=== PATIENT | male | born 1950 | race Caucasian/White ===

== ENCOUNTER 2016-11-03 15:56 | Emergency (ER) | payer MEDICAID ==
[2016-11-03 16:10] VITALS: TEMP 98.1
--- NOTE | 2016-11-03 16:17 | CPEKG ---
Heart Rate: 98 RR Interval: 612 P-R Interval: 152 QRSD Interval: 84 QT Interval: 352 QTC Interval: 450 P [place]: 31 QRS [place]: -39 T Wave [place]: 9 EKG Severity - OTHERWISE NORMAL ECG - EKG Impression: SINUS RHYTHM EKG Impression: LEFT AXIS DEVIATION Electronically Signed By: Rose Bueno 03-Nov-2016 22:03:19
[2016-11-03 16:30] LABS: % IMMATURE GRANULYOCYTES 0.5 % (0.0-1.1); ABSOLUTE IMMATURE GRANULOCYTES 0.04 10^3/uL (0.00-0.10); ADD DIFF? NO; ADD MORPH? NO; ADD SCAN? NO; ATYPICAL LYMPHOCYTE FLAG 0 (0-99); FRAGMENT RBC FLAG 10 (0-99); HEMATOCRIT 41.9 % (40.0-51.0); LEFT SHIFT FLG 0 (0-99); LIPEMIA HEMOLYSIS FLAG 80 (0-99); MEAN CELL HEMOGLOBIN 30.4 pg (27.9-34.1); MEAN CELL HEMOGLOBIN CONCENTR. 33.4 g/dL (32.4-36.7); MEAN CELL VOLUME 90.9 fL (81.5-99.8); MEAN PLATELET VOLUME 8.7 fL (8.7-11.7); PLATELET CLUMPS FLAG 0 (0-99); PLATELET COUNT 347 10^3/uL (150-400); RED BLOOD CELL COUNT 4.61 10^6/uL (4.40-6.38); RED CELL DISTRIBUTION WIDTH 14.5 % (11.5-15.2)
--- NOTE | 2016-11-03 16:54 | EDPHY ---
H & P Time Seen by Provider: 11/03/16 16:47 HPI/ROS: CHIEF COMPLAINT: Lightheadedness, shortness of breath. HISTORY OF PRESENT ILLNESS: The patient is a 65-year-old male with a history of hypertension and dementia presenting from [facility] via EMS. He does not know why he is here. All he remembers is being helped by staff after a possible fall. He says he feels "woozy". He denies cough, chest pain, or other complaints. He denies head injury. He reports that his blood pressure has been "out of whack" lately. Patient is an extremely poor historian due to encephalopathy and dementia and the history is thus limited. Per nursing staff the patient was complaining about soreness all over, including the chest, which he describes as the pain you get "when you sneeze a lot." He denies any pain at this time. REVIEW OF SYSTEMS: Limited due to dementia and encephalopathy. Past Medical/Surgical History: Dementia, hypertension, chronic Esquivel catheter for urinary retention, GERD, liver disease. Social History: Here alone, smoker. Smoking Status: Current every day smoker Physical Exam: General Appearance: Alert, well-appearing Eyes: Pupils equal and round, no conjunctival pallor ENT, Mouth: Mucous membranes moist Neck: Normal inspection Respiratory: Lungs are clear to auscultation Cardiovascular: Regular rate and rhythm Gastrointestinal: Abdomen is soft and non-tender Neurological: A&O, nonfocal exam Skin: Warm and dry, no rash Extremities: Nontender, no pedal edema Psychiatric: Mood and affect normal Constitutional: Initial Vital Signs Temperature (C) 36.7 C 11/03/16 16:06 Heart Rate 113 H 11/03/16 16:06 Respiratory Rate 18 11/03/16 16:06 Blood Pressure 135/101 H 11/03/16 16:06 O2 Sat (%) 94 11/03/16 16:06 O2 Delivery Mode Room Air Allergies/Adverse Reactions: No Known Allergies Allergy (Unverified 06/20/16 09:16) Home Medications: Medication Instructions Recorded Tamsulosin HCl [Flomax 0.4 MG (*)] 0.4 mg PO DAILY 09/11/16 LORazepam [Ativan (*)] 0.5 mg PO Q12H PRN #0 tab 09/12/16 Multivitamins [Multivitamin (*)] 1 each PO DAILY #0 tab 09/12/16 Medical Decision Making - Diagnostics Imaging: Chest x-ray reviewed by radiology reveals mild peribronchial thickening suggesting airways disease/bronchitis. ED Course/Re-evaluation: An IV was established and basic labs ordered. Chest x-ray, EKG ordered. The emergency department nurse called the snf staff and they state that he they sent him here because he had an episode of chest pain. The chest pain was associated with pain all over his body. He denies pain now. I have low clinical suspicion for acute coronary syndrome. Stat EKG reveals no evidence of ischemia. He was asymptomatic throughout his emergency department stay. I feel that he is safe and stable for discharge home. Differential Diagnosis: Differential diagnosis includes though it is not limited to pneumonia, pneumothorax, pulmonary embolism, aortic dissection, pericarditis, acute coronary syndrome. - Data Points Laboratory Results: Laboratory Results 11/03/16 16:05 11/03/16 16:05 Departure - Departure Disposition: Home, Routine, Self-Care Clinical Impression: Myalgia, Chest pain in adult Condition: Good Instructions: Musculoskeletal Pain (ED), Chest Pain (DC) Additional Instructions: Follow up with your primary care provider in the next 2-3 days if symptoms are not improving. Return to the emergency department if you experience serious worsening of condition. Referrals: JENIFER BERG [Primary Care Provider] - As per Instructions Report Scribed for: Rose Bueno Report Scribed by: Rory Mon Date of Report: 11/03/16 Time of Report: 16:53 Physician Review and Approval Statement: Portions of this note were transcribed by a medical instructor. I personally performed a history, physical exam, medical decision making, and confirmed accuracy of information the transcribed note.
[2016-11-03 17:13] LABS: ANION GAP 16 mEq/L (8-16); CALCIUM 9.2 mg/dL (8.5-10.4); CARBON DIOXIDE 24 mEq/l (22-31); CHLORIDE 103 mEq/L (97-110); GLOMERULAR FILTRATION RATE > 60; GLUCOSE 99 mg/dL (70-100); POTASSIUM 4.2 mEq/L (3.5-5.2); SODIUM 143 mEq/L (134-144)
--- NOTE | 2016-11-03 17:16 | DX ---
PA and Lateral Chest History: Pain. Comparison: Portable chest September 11, 2016, CT chest July 15, 2016. Findings: There is mild peribronchial thickening without focal consolidation. There is no pneumothora x or pleural effusion. The heart and pulmonary vasculature are normal. Mild degenerative change is pr esent in the spine. Impression: Mild peribronchial thickening suggesting airways disease/bronchitis.
[2016-11-03 17:25] LABS: TROPONIN I < 0.012 ng/mL (0-0.034)
[2016-11-03 17:58] VITALS: BP 130/90; PULSE 101; RESP 16; O2SAT 96
== END 2016-11-03 18:20 | disposition home or self-care (01) ==
LOC: EDUNIT#
DX: R07.9 Chest pain, unspecified (principal); M79.1 Myalgia; I10 Essential (primary) hypertension; F17.200 Nicotine dependence, unspecified, uncomplicated